=== PATIENT | male | born 1990 | race Caucasian/White ===

== ENCOUNTER 2021-11-25 13:51 | Emergency (ER) | payer OTHER ==
[~2021-11-25] VITALS: Ht 180.3 cm; Wt 113.6 kg
[2021-11-25 15:45] VITALS: BP 119/59
== END 2021-11-25 15:45 | disposition home or self-care (01) ==
LOC: ED 13:51
DX: S01.412A Laceration without foreign body of left cheek and temporomandibular area, initial encounter (principal); F17.210 Nicotine dependence, cigarettes, uncomplicated; W26.8XXA Contact with other sharp object(s), not elsewhere classified, initial encounter; Y99.0 Civilian activity done for income or pay